=== PATIENT | female | born 1950 | race African-American/Black ===

== ENCOUNTER 2023-11-15 10:27 | Emergency (ER) | payer MEDICARE, MEDICAID ==
[~2023-11-15] VITALS: Ht 165.1 cm; Wt 65.9 kg
[2023-11-15 10:40] VITALS: BP 147/79; PULSE 70; RESP 18; TEMP 98.2
[2023-11-15] MEDS: CEPHALEXIN MONOHYDRATE 500 MG CAPSULE PO ONE (12:29)
[2023-11-15] MEDS: ACETAMINOPHEN 325 MG TABLET PO ONE (12:30)
[2023-11-15] MEDS: SULFAMETHOX/TRIMETH DS 800-160 MG/TABLET PO ONE (12:30)
[2023-11-15] MEDS: BACITRACIN 0.9 GM PACKET OINTMENT TP ONE (12:30)
[2023-11-15] MEDS ORDERED: ACET-2247 PO (12:45)
[2023-11-15] MEDS ORDERED: CEPH-558 PO (12:45)
[2023-11-15] MEDS ORDERED: SULF-261 PO (12:45)
== END 2023-11-15 12:54 | disposition home or self-care (01) ==
LOC: EMS 10:27
DX: L03.115 Cellulitis of right lower limb (principal); I10 Essential (primary) hypertension
CPT/HCPCS: 99284; 73630-TC; Z7502; Z7610